=== PATIENT | male | born 1965 | race American Indian/Alaskan Native ===

== ENCOUNTER 2022-01-28 19:42 | Emergency (ER) | payer SELFPAY ==
[2022-01-28 20:36] LABS: ESTIMATED GFR 27 mL/min (>60)
== END 2022-01-28 21:59 | disposition home or self-care (01) ==
LOC: JP.ED 19:42
DX: E11.649 Type 2 diabetes mellitus with hypoglycemia without coma (principal); E11.22 Type 2 diabetes mellitus with diabetic chronic kidney disease; N18.4 Chronic kidney disease, stage 4 (severe); Z88.5 Allergy status to narcotic agent; Z79.4 Long term (current) use of insulin
CPT/HCPCS: 36415; 80053; 81001; 82009; 82803; 82947; 85025; 99283